=== PATIENT | female | born 1945 | race Caucasian/White ===

== ENCOUNTER 2017-10-21 05:58 | Day surgery (SDC) | payer OTHER ==
[2017-10-09 11:23] VITALS: BMI 30.7
[2017-10-21] MEDS ORDERED: BUPIVACAINE HCL/PF 2.5 MG/ML - 30 ML VIAL IJ ONE (07:35)
[2017-10-21] MEDS ORDERED: methylPREDNISolone ACET (DEPO) 40 MG/1 ML VIAL ONE (07:35)
[2017-10-21] MEDS ORDERED: GELATIN, ABSORBABLE 100 EACH SPONGE TP ONE (07:35)
[2017-10-21] MEDS ORDERED: THROMBIN (BOVINE) 5,000 UNIT VIAL TP ONE (07:35)
[2017-10-21] MEDS ORDERED: LIDOCAINE 1%/EPI 1:100000 (20 ML MULTI DOSE VIAL) ONE (07:35)
[2017-10-21] MEDS ORDERED: fentaNYL CITRATE 250 MCG/5 ML VIAL ONE (08:07)
[2017-10-21] MEDS ORDERED: PROPOFOL 20 ML ONE (08:07)
[2017-10-21] MEDS ORDERED: ETOMIDATE 20 MG/10 ML AMPUL IVPUSH ONE ×2 (08:07→08:09)
[2017-10-21] MEDS ORDERED: MIDAZOLAM HCL 2 MG/2 ML SINGLE DOSE VIAL ONE (08:07)
[2017-10-21] MEDS ORDERED: ROCURONIUM BROMIDE 50 MG/5 ML VIAL ONE ×2 (08:07→10:48)
--- NOTE | 2017-10-21 09:10 | HP ---
History & Physical Update - History History: No Change - Physical Physical: No Change - Assessment Assessment: No Change - Plan Plan: No Change
[2017-10-21] MEDS ORDERED: ePHEDrine SULFATE 50 MG/1 ML AMPULE ONE (09:28)
[2017-10-21] MEDS ORDERED: DEXAMETHASONE SOD PHOSPHATE 4 MG/1 ML VIAL ONE (10:03)
[2017-10-21] MEDS ORDERED: ESMOLOL HCL 100,000 MCG/10 ML VIAL ONE (10:03)
[2017-10-21] MEDS ORDERED: ceFAZolin SODIUM 1 GM VIAL ONE ×2 (10:03→17:44)
[2017-10-21] MEDS ORDERED: ONDANSETRON 4 MG/2 ML VIAL ONE ×2 (10:03→13:19)
[2017-10-21] MEDS ORDERED: LIDOCAINE HCL 2% JELLY (5 ML/TUBE) ONE (10:03)
[2017-10-21] MEDS ORDERED: DESFLURANE GAS 240 ML BOTTLE IH ONE (10:37)
[2017-10-21] MEDS ORDERED: NEOSTIGMINE METHYLSULFATE 0.5 MG/ML - 10 ML MDV ONE (11:56)
[2017-10-21] MEDS ORDERED: GLYCOPYRROLATE 0.2 MG/1 ML VIAL ONE (11:56)
[2017-10-21] MEDS ORDERED: BUPIVACAINE HCL/PF 0.25% (2.5MG/ML) 10 ML VIAL IJ ONE (12:06)
[2017-10-21] MEDS ORDERED: OXYCODONE HCL 7.5 MG PO PRN (12:21)
[2017-10-21] MEDS ORDERED: oxyCODONE HCL 5 MG TABLET PO PRN ×2 (12:26)
[2017-10-21] MEDS ORDERED: ONDANSETRON 4 MG/2 ML VIAL IVPUSH PRN (12:26)
[2017-10-21] MEDS ORDERED: PROMETHAZINE HCL 25 MG/1 ML VIAL IVPUSH PRN (12:26)
[2017-10-21] MEDS ORDERED: LACTATED RINGERS SOLUTION 1,000 ML IV SCH (12:30)
--- NOTE | 2017-10-21 14:09 | OP ---
DATE OF OPERATION: 10/21/2017 PREOPERATIVE DIAGNOSES: 1. Chronic degenerative low back pain. 2. Failed back syndrome. POSTOPERATIVE DIAGNOSES: 1. Chronic degenerative low back pain. 2. Failed back syndrome. PROCEDURE PERFORMED: 1. T9 laminotomy for insertion of spinal cord stimulator paddle. 2. Insertion of spinal cord stimulator pulse generator. SURGEON: Beck Colón MD OSTEOPATHIC RESIDENT: ASHLYN Patel ANESTHESIA: General. INDICATIONS FOR THE PROCEDURE: The patient is a 72-year-old female with a history of lumbar spinal fusion with persistent and intractable chronic low back pain. This had been refractory to management with pain management treatment and physical therapy. She has been symptomatic for several years now. She underwent a spinal cord stimulator trial with excellent relief of her symptoms. She is indicated for a permanent stimulator implantation. Risks, benefits, and alternatives of the surgery were discussed in detail with the patient and informed consent was obtained. LIST OF IMPLANTS: [employer] CoverEdge 32, 50-cm 4 x 8 surgical technologist, [employer] ([email or web address]) implantable pulse generator, 2 Clik X anchors. DESCRIPTION OF THE PROCEDURE: The patient was brought into the operating room via stretcher and general endotracheal anesthesia was administered by the anesthesiologist. The patient was then carefully placed in the supine position on to a padded Bairon frame, taking care of placing the ileostomy site at the midline and completely free of pressure. The bony prominences were padded and the back was then prepped and draped in the usual sterile fashion. A fluoroscopic C-arm was draped in to allow for localizing fluoroscopic radiographs. The entry point for the paddle was then identified at the T9 lamina and a midline incision of appropriate length was then made. Dissection was carried down to the level of the fascia which was split with electrocautery, exposing the T9 lamina. A T9 hemilaminotomy was then performed at the midline with excision of the ligamentum flavum, exposing the thoracic cord. A paddle was then inserted at the midline position under fluoroscopy spanning T8 and on to T7 in keeping with the preoperative trial. The impedances were then tested, showing excellent results on all 4 leads. The 1st and the 4th leads were then anchored to the fascia using Clik X anchors x2 which were locked into place with the torquing screwdriver. An incision was then made on the right posterior iliac crest of appropriate length for the pulse generator. Subcutaneous dissection was carried down bluntly and the leads were again tested on to the pulse generator with excellent function. The tunneler was then used to pass the leads and they were connected to the pulse generator again and tested 1 more time, showing excellent function and coverage in all 4 leads. The leads were then locked into place and the excess slack on the leads was placed behind the pulse generator and the generator was placed into the subcutaneous pocket. The wounds were then copiously irrigated. The deep fascia was approximated with 2-0 Vicryl suture and the skin was closed with running 3-0 nylon suture. Sterile dressing was applied. The patient tolerated the procedure well without complications. The patient was then flipped into the supine position, having tolerated the procedure well. The ileostomy site showed no issues. ASHLYN Patel, was necessary throughout the case for proper assistance and retraction of the neural elements and placement of the permanent implant. This could not have been done without a skilled surgical corsetier. Bryan [id number]
[2017-10-21] MEDS ORDERED: oxyCODONE HCL 5 MG TABLET ONE ×2 (14:27→15:18)
[2017-10-21] MEDS ORDERED: SODIUM CHLORIDE 0.45% 1,000 ML IV SCH (16:00)
[2017-10-21] MEDS ORDERED: HYDROmorphone HCL CARPU-JECT 2 MG/1 ML DISP.SYRIN IVPB PRN (16:01)
[2017-10-21] MEDS: CEFAZOLIN 1 GM/D5W 1 GM/50 ML BAG IVPB SCH (21:13)
[2017-10-21] MEDS: GABAPENTIN 400 MG CAPSULE (FP) PO SCH (21:13)
[2017-10-21] MEDS ORDERED: INSULIN DETEMIR 100 UNITS/ML MDV SQ SCH (22:00)
[2017-10-21] MEDS ORDERED: PATIENT'S OWN MEDICATION (NON-FORMULARY) (Insulin (Levemir) [Levemir Flexpen -] 20 UNITS) SQ SCH (22:00)
[2017-10-21] MEDS ORDERED: PATIENT'S OWN MEDICATION (NON-FORMULARY) (Gabapentin [Gabapentin] 800 MG) PO SCH (22:00)
[2017-10-22] MEDS: CEFAZOLIN 1 GM/D5W 1 GM/50 ML BAG IVPB SCH (01:20)
[2017-10-22] MEDS ORDERED: LEVOTHYROXINE NA 125 MCG TABLET (FP) PO SCH (07:00)
[2017-10-22 09:15] VITALS: BP 129/47; PULSE 78; TEMP 98.1
[2017-10-22] MEDS: GABAPENTIN 400 MG CAPSULE (FP) PO SCH (09:57)
[2017-10-22] MEDS ORDERED: INSULIN DETEMIR SQ SCH (10:00)
[2017-10-22] MEDS ORDERED: [UNRECOGNIZED DRUG - OTHER] SQ SCH (10:00)
[2017-10-22] MEDS ORDERED: PATIENT'S OWN MEDICATION (NON-FORMULARY) (Losartan Potassium [Losartan Potassium] 100 MG) PO SCH (10:00)
[2017-10-22] MEDS ORDERED: LOSARTAN POTASSIUM 50 MG TABLET (FP) PO SCH (10:00)
[2017-10-22] MEDS ORDERED: PANTOPRAZOLE 40 MG TABLET (FP) PO SCH (10:00)
[2017-10-22] MEDS ORDERED: RED YEAST RICE 600 MG PO SCH (10:00)
[2017-10-22] MEDS ORDERED: INSULIN DETEMIR 100 UNITS/ML MDV SQ SCH (10:00)
--- NOTE | 2017-10-22 11:23 | PN ---
Progress Note (short form) - Note Progress Note: 72F POD1 s/p insertion spinal cord stimulator under GA-ETT. Pt states that pain is well controlled. Reports no anesthetic complications. AVSS. Sensory and motor function intact in bilateral lower extremities. Continue current regimen.
--- NOTE | 2017-10-22 11:26 | PN ---
Progress Note (short form) - Note Progress Note: doing much better Afeb wounds dry nvid s/p spinal cord stim admitted overbight for pain control -d/c today -f/u one week -wound care discussed
== END 2017-10-22 12:58 | disposition home or self-care (01) ==
LOC: FASU 05:58 → FM/S 20:15 → FASU 10-22 12:58
PROVIDERS: ATTEND Orthopaedic Surgery Orthopaedic Surgery of the Spine
PROC: 00HU0MZ Insertion of Neurostimulator Lead into Spinal Canal, Open Approach (ICD-10-PCS; 2017-10-21)
PROC: 4B00XVZ Measurement of Central Nervous Stimulator, External Approach (ICD-10-PCS; 2017-10-21)
PROC: 0JH70DZ Insertion of Multiple Array Stimulator Generator into Back Subcutaneous Tissue and Fascia, Open Approach (ICD-10-PCS; principal; 2017-10-21 09:42)
DX: M54.5 Low back pain (principal); M96.1 Postlaminectomy syndrome, not elsewhere classified; G89.29 Other chronic pain
CPT/HCPCS: 63655; 63685; 95972; C1778; 72070-TC-FY; 76001-TC-FY; 82962; 94760; 97116-GP; 97161-GP